=== PATIENT | male | born 1950 | race African-American/Black ===

== ENCOUNTER 2021-11-27 05:37 | Inpatient (IN) | payer MEDICARE, OTHER ==
[2021-11-23 10:13] LABS: CLARITY,URINE CLEAR (Clear); COLOR,URINE YELLOW (Yellow); GLUCOSE, URINE NEGATIVE (Neg); KETONES,URINE NEGATIVE (Neg); LEUKOCYTE ESTERASE ,URINE NEGATIVE (Neg); NITRITES, URINE NEGATIVE (Neg); OCCULT BLOOD,URINE TRACE-INTACT (Neg); PROTEIN,URINE TRACE mg/dl (Neg); UROBILINOGEN,URINE 0.2 E.U/dL (0.2-1.0)
[2021-11-23 10:15] LABS: BASOPHILS # (AUTO) 0.1 X10'3 (0-0.2); BASOPHILS % (AUTO) 1.5 % (0-1); EOSINOPHILS # (AUTO) 0.3 X10'3 (0-0.9); EOSINOPHILS % (AUTO) 6.4 % (0-6); LYMPHOCYTES # (AUTO) 1.4 X10'3 (1.1-4.8); LYMPHOCYTES % (AUTO) 31.2 % (21-51); MEAN CORPUSCULAR HEMOGLOBIN 27.7 PG (27.0-31.0); MEAN CORPUSCULAR HGB CONC 33.2 g/dL (33.0-36.5); MEAN CORPUSCULAR VOLUME 83.4 FL (78-98); MEAN PLATELET VOLUME 7.3 FL (7.4-10.4); MONOCYTES # (AUTO) 0.4 X10'3 (0-0.9); MONOCYTES % (AUTO) 9.7 % (2-12); NEUTROPHILS # (AUTO) 2.3 X10'3 (1.8-7.7); NEUTROPHILS % (AUTO) 51.2 % (42-75); PRE OP HEMATOCRIT 38.9 % (42.0-52.0); PRE OP HEMOGLOBIN 12.9 g/dL (14.0-17.9); PRE OP PLATELET COUNT 304 X10'3 (140-440); RED BLOOD COUNT 4.66 X10'6 (4.70-6.10)
[2021-11-23 10:20] LABS: UA COLLECTION TYPE CLN CATCH MIDSTREAM
[2021-11-23 10:21] LABS: BACTERIA,URINE 1+ /HPF (Neg); HYALINE CASTS 0-3 /LPF (NEGATIVE); MUCUS STRANDS FEW /LPF (Neg); RBC,URINE 0-2 /HPF (0-2); SQUAMOUS EPITHELIAL CELL,UR FEW /LPF (FEW); WBC,URINE 0-4 /HPF (0-4)
[2021-11-23 10:35] LABS: ALBUMIN 3.8 G/DL (3.4-5.0); ALKALINE PHOSPHATASE 77 IU/L (46-116); BLOOD UREA NITROGEN 12 MG/DL (7-18); BUN/CREATININE RATIO 8.9 (5.4-32.0); CALCIUM 8.7 MG/DL (8.5-10.1); CHLORIDE 106 MMOL/L (99-107); CREATININE 1.35 MG/DL (0.60-1.10); PRE OP ALT 30 U/L (30-65); PRE OP ANION GAP 11 (8-16); PRE OP AST 15 U/L (10-37); PRE OP BILIRUB, TOTAL 0.4 MG/DL (0.0-1.0); PRE OP GLUCOSE 119 MG/DL (70-104); PRE OP POTASSIUM 4.1 MMOL/L (3.4-5.1); PRE OP SODIUM 143 MMOL/L (135-145); TOTAL CARBON DIOXIDE 25.7 MMOL/L (24-32); TOTAL PROTEIN 7.7 G/DL (6.4-8.2); eGFR 63 ML/MIN
[2021-11-27] VITALS (27 sets, daily range): BP systolic 93–123; BP diastolic 53–76
[~2021-11-27] VITALS: Ht 177.8 cm; Wt 89.9 kg
[~2021-11-27 05:37] MED LIST: ALBU8.5H17 INH; AMLO10TA13 PO; ATEN25TA PO; ATOR40TA PO; DOCUMENT DATE & TIME OF BETA-BLOCKER PO ONE; ENOX80DI8 SQ; FLUT16SP2 BOTHNARES; FURO-150 PO; HYDR-3973 PO; LEVO100T PO; LEVO88TA2 PO; LOSA25TA96 PO; METF-436 PO; POTA8TAB69 PO; albuterol 2.5 MG/3 ML nebule NEB ONE; cefazolin/dext.iso 2gm/50ml IV ONE; famotidine 20mg tablet PO ONE; ringers solution, lacted 1,000 ML IV SCH
[2021-11-27] MEDS ORDERED: LIDOcaine 1% (10mg/ml) 2ml vial ONE (08:07)
[2021-11-27] MEDS ORDERED: propofol inj 20 ML IV ONE (09:15)
[2021-11-27] MEDS ORDERED: midazolam 1 mg/ML 2ml injection ONE (09:15)
[2021-11-27] MEDS ORDERED: rocuronium 10mg/ml inj IV ONE (09:15)
[2021-11-27] MEDS ORDERED: fentaNYL /PF 50mcg/ml 5ml ampule ONE (09:15)
[2021-11-27] MEDS ORDERED: HYDROmorphone/PF 0.2 MG/ML SYRINGE IV PRN ×2 (09:30)
[2021-11-27] MEDS ORDERED: acetaminophen 1,000mg/100ml IV 100 ML IV PRN (09:30)
[2021-11-27] MEDS ORDERED: ringers solution, lacted 1,000 ML IV SCH (09:30)
[2021-11-27] MEDS ORDERED: proCHLORperazine 10 MG/2 ml inj IV PRN (09:30)
[2021-11-27] MEDS ORDERED: ondansetron/PF 4mg/2ml inj IV PRN ×2 (09:30→12:25)
[2021-11-27] MEDS ORDERED: meperidine/PF 25mg/ml syringe IV PRN ×2 (09:30)
[2021-11-27] MEDS ORDERED: labetalol 20mg/4ml (5mg/ml) syringe IV PRN (09:30)
[2021-11-27] MEDS ORDERED: BUPIVACAINE liposomal/PF 13.3 MG/ML vial IM ONE (09:58)
[2021-11-27] MEDS ORDERED: BUPIVAcaine 0.5% inj/PF 30 ML ONE (09:58)
[2021-11-27] MEDS ORDERED: ePHEDrine 50MG/ML INJ. ONE (09:59)
[2021-11-27] MEDS ORDERED: sevoflurane 250ml liquid IH ONE (10:08)
[2021-11-27] MEDS ORDERED: ondansetron/PF 4mg/2ml inj ONE (10:08)
[2021-11-27] MEDS ORDERED: dexamethasone 4mg/ml inj ONE (10:08)
[2021-11-27] MEDS ORDERED: glycopyrrolate 0.2mg/ml inj ONE (11:55)
[2021-11-27] MEDS ORDERED: neostigmine methylsulfate 1 MG/ML 10ml vial ONE (11:55)
--- NOTE | 2021-11-27 12:16 | NUR ---
Received from OR via BED IN STABLE CONDTION , accompanied by Anesthesiologist and BIO MEDICAL TECHNICIAN report given by BIO MEDICAL TECHNICIAN AND Anesthesiolgist. Addendum: 11/27/21 at 1254 by Dimple Leahy RN Amended: Links added.
[2021-11-27] MEDS ORDERED: HYDROcodone/acetaminophen 10/325mg tab PO PRN ×2 (12:25)
[2021-11-27] MEDS ORDERED: metoclopramide 5 mg/ml inj IV PRN (12:25)
[2021-11-27] MEDS ORDERED: albuterol 2.5 MG/3 ML nebule NEB PRN (12:25)
[2021-11-27] MEDS ORDERED: potassium cl 20mEq in 1/2 NS 1,000 ML IV SCH (12:25)
[2021-11-27 12:59] LABS: ABG BASE EXCESS -3.7 mmol/L (-2.0-2.0); ABG HCO3 22.8 mmol/L (22.0-26.0); ABG OXYGEN SATURATION 88.5 % (94-97); ABG PO2 (T) 57.7 mmHg (75.0-100.0); FLOW 4 L/min; FMetHb 0.4 % (0.0-1.5); FO2Hb 88.1 % (94-97); PATIENT TEMPERATURE 35.7; TOTAL HEMOGLOBIN 12.5 G/dl (14.0-18.0)
--- NOTE | 2021-11-27 14:06 | NUR ---
PATIENT DISCHARGED FROM PACU IN STABLE CONDITION AFTER REPORT GIVEN TO RN TAKING OVER PATIENTS CARE. PATIENT TRANSFERRED TO ROOM 3027B VIA BED WITH CHEST TUBE AND ON MONITOR WITH RN X2 Addendum: 11/27/21 at 1417 by Dimple Leahy RN Amended: Links added.
[2021-11-27] MEDS: HYDROmorphone inj. 0.5 MG/0.5 ML DISP.SYRIN IV PRN ×2 (14:30→20:36)
--- NOTE | 2021-11-27 15:20 | NUR ---
Need order clarification on potassium 1/2 NS fluids. Says if pt needs insulin. Called pharmacy who doesn't know. Called Pablo whom is in surgery at the moment and unable to reply.
[2021-11-27] MEDS: ceFAZolin inj. 1,000 MG in dextrose 5%-water 50ml 50 ML IV SCH (15:50)
--- NOTE | 2021-11-27 18:32 | NUR ---
Gave report to Uriel MARTÍNEZ.
[2021-11-27] MEDS: gabapentin 300mg capsule PO SCH (20:35)
--- NOTE | 2021-11-27 22:30 | NUR ---
PT HAD EATEN A SNACK RIGHT BEFORE I TOOK HIS BLOOD SUGAR WHICH WAS 169. I REPEATED IT AT 2330 = 159
[2021-11-28] MEDS: ceFAZolin inj. 1,000 MG in dextrose 5%-water 50ml 50 ML IV SCH (00:08)
[2021-11-28 02:00] VITALS: BP 115/78
[2021-11-28 06:10] LABS: BASOPHILS % (AUTO) 0.1 % (0-1); EOSINOPHILS % (AUTO) 0 % (0-6); HEMATOCRIT 35.4 % (42.0-52.0); HEMOGLOBIN 11.8 g/dl (14.0-17.9); LYMPHOCYTES # (AUTO) 0.4 X10'3 (1.1-4.8); MEAN CORPUSCULAR HEMOGLOBIN 27.1 PG (27.0-31.0); MEAN CORPUSCULAR HGB CONC 33.3 g/dL (33.0-36.5); MEAN CORPUSCULAR VOLUME 81.4 FL (78-98); MEAN PLATELET VOLUME 7.5 FL (7.4-10.4); MONOCYTES # (AUTO) 0.5 X10'3 (0-0.9); MONOCYTES % (AUTO) 7.9 % (2-12); NEUTROPHILS # (AUTO) 5.1 X10'3 (1.8-7.7); PLATELET COUNT 246 X10'3 (140-440); RED BLOOD COUNT 4.35 X10'6 (4.70-6.10); RED CELL DISTRIBUTION WIDTH 15.5 % (11.5-14.5)
[2021-11-28 06:27] LABS: ALANINE AMINOTRANSFERASE 29 U/L (12-78); ALBUMIN 3.4 G/DL (3.4-5.0); ALKALINE PHOSPHATASE 70 IU/L (46-116); ANION GAP 11 (8-16); ASPARTATE AMINO TRANSFERASE 19 U/L (10-37); BILIRUBIN,TOTAL 0.4 MG/DL (0.1-1.0); BLOOD UREA NITROGEN 10 MG/DL (7-18); BUN/CREATININE RATIO 8.6 (5.4-32.0); CALCIUM 8.7 MG/DL (8.5-10.1); CHLORIDE 108 MMOL/L (99-107); CREATININE 1.16 MG/DL (0.60-1.10); GLUCOSE 125 MG/DL (70-104); PHOSPHORUS 3.9 MG/DL (2.3-4.5); POTASSIUM 3.9 MMOL/L (3.5-5.1); SODIUM 144 MMOL/L (135-145); TOTAL CARBON DIOXIDE 24.6 MMOL/L (24-32); TOTAL PROTEIN 6.9 G/DL (6.4-8.2); eGFR 75 ML/MIN
[2021-11-28 06:30] VITALS: BP 136/72
--- NOTE | 2021-11-28 06:51 | NUR ---
Problems reprioritized. Patient report given, questions answered & plan of care reviewed with AMISH. Addendum: 11/28/21 at 0651 by Saqib Griffin RN Amended: Links added.
[2021-11-28] MEDS: gabapentin 300mg capsule PO SCH (09:08)
[2021-11-28 11:00] VITALS: BP 104/62
[2021-11-28] MEDS: HYDROmorphone inj. 0.5 MG/0.5 ML DISP.SYRIN IV PRN (14:31)
[2021-11-28 15:00] VITALS: BP 103/65
--- NOTE | 2021-11-28 17:59 | NUR ---
pt a/ox4, VSS, On room air. After ambulating with PT today, pt c/o pain to left chest. .5mg dilauded IV given with relief of pain. Sister at bedside throughout shift. MD removed chest tube without difficulty. IV and Central line removed per protocol. Pressure held for 15min to right neck, post procedure. Discharge instructions reviewed with patient and sister, understanding of instruction verbalized. No scripts sent home. Pt to do NO heavy lifting until seen by doctor on Saturday. No shower or baths until saturday, Keep dressings in place until follow up appt. Pt taken off floor in wheelchair.
== END 2021-11-28 17:23 | disposition home or self-care (01) | DRG 804 ==
LOC: PAS 05:37 → EDSTATUS 08:00 → PCU 3S 12:27
PROVIDERS: ADMIT Surgery; ATTEND Surgery
PROC: 0W9B40Z Drainage of Left Pleural Cavity with Drainage Device, Percutaneous Endoscopic Approach (ICD-10-PCS; 2021-11-27)
PROC: 8E0W4CZ Robotic Assisted Procedure of Trunk Region, Percutaneous Endoscopic Approach (ICD-10-PCS; 2021-11-27)
PROC: 07B74ZX Excision of Thorax Lymphatic, Percutaneous Endoscopic Approach, Diagnostic (ICD-10-PCS; principal; 2021-11-27 10:08)
DX: R59.0 Localized enlarged lymph nodes (principal); Z85.850 Personal history of malignant neoplasm of thyroid
CPT/HCPCS: 36415; 36600; 71045; 71250; 80053; 81001; 82803; 82948; 83735; 84100; 85018; 85025; 86885; 86900; 86901; 87635; 88305; 88313; 88331; 88341; 88342; 94760; 97116; 97161; 97530; A4618; A6258; A6449; A7000; A7048; C1758; C9290; G0378; J0131; J0690; J1100; J1170; J2175; J2250; J2405; J2704; J2710; J3010; J3490; J7040; J7060; J7120; S0020